=== PATIENT | female | born 1995 | race Caucasian/White ===

== ENCOUNTER 2019-06-25 07:35 | Inpatient (IN) ==
[2019-06-25 08:25] LABS: Hematocrit (blood only) 29.1 % (37-47); Hemoglobin 9.7 g/dL (12.0-16.0); Mean Corpuscular Volume 82.9 fL (80-100); Platelet Count 251 K/uL (130-400); RDW Coefficient of Variation 13.7 % (11.5-14.5); RDW Standard Deviation 41.5 fL (36.4-46.3); Red Blood Count 3.51 M/uL (4.2-5.4); White Blood Count 7.72 K/uL (4.8-10.8)
[2019-06-25 08:35] LABS: Mean Corpuscular Hgb Conc 33.3 g/dL (32-36)
[2019-06-25] MEDS: LACTATED RINGER'S 1,000 ML IV PRN ×3 (09:05→18:50)
[2019-06-25] MEDS ORDERED: OXYTOCIN 30 UNITS/500 ML BAG IV PRN ×2 (09:06→20:09)
[2019-06-25] MEDS ORDERED: ONDANSETRON INJ 2 MG/ML 2 ML VIAL IV PRN (16:03)
[2019-06-25] MEDS ORDERED: ePHEDrine sulfate 50 MG/ML AMP IV PRN (16:03)
[2019-06-25] MEDS ORDERED: fentaNYL 2MCG/ML ROPIV 1.25MG/ML 100 ML BAG EPI PRN (16:03)
[2019-06-25] MEDS ORDERED: NALOXONE HCL 0.4 MG/1 ML VIAL/CARP IV PRN (16:03)
[2019-06-25] MEDS ORDERED: NALOXONE HCL 1 MG in SODIUM CHLORIDE 0.9% 1000ML 1,000 ML IV PRN (16:03)
--- NOTE | 2019-06-25 16:11 | Anesthesiology Consultation ---
Date of Service June 25, 2019 Assessment & Plan (1) Encounter for pre-operative examination: Chart Review Chart Review: Patient NOT seen in Pre Admission Testing and Acceptable Risk for Labor Epidural Consults Requested none History Height/Weight Height: 5 ft 4.5 in Weight: 71.668 kg Allergies Allergy/AdvReac Type Severity Reaction Status Date / Time morphine Allergy Severe Anaphylaxis Verified 06/25/19 10:18 diphenhydramine AdvReac Severe Anaphylaxis Verified 06/25/19 10:18 [From Benadryl] Medications Home Medications Medication Instructions Recorded Confirmed Last Taken vit no.842-pden-lqzko 1 tab PO DAILY 06/25/19 06/25/19 Unknown [ Vitamin] Active Medications Generic Name Dose Route Start Last Admin Trade Name Freq PRN Reason Stop Dose Admin Lactated Ringer's 1,000 mls @ 125 mls/hr 06/25/19 07:54 06/25/19 15:58 Lr IV 06/27/19 07:53 999 mls/hr .Q8H PRN Administration L&D Protocol Protocol Oxytocin 30 units in 500 mls @ 12 mls/hr 06/25/19 09:06 06/25/19 15:14 Pitocin IV 06/27/19 09:05 0.72 units/hr .Q24H PRN 12 mls/hr Labor Induction/Augmentation Titration Protocol 0.72 UNITS/HR Past Medical History Medical History POTS (postural orthostatic tachycardia syndrome) Alf-Danlos syndrome First trimester Spontaneous loss 2014 18 week gestation, spontaneous IUFD, unknown cause, induced [place] teeth removed non cascular type alf danlos. pt has had two successful epidurals before Exercise / Class Metabolic Activity II 4-5 Yardwork/Stairs/Walk up hill Past Family History Family History Other No pertinent family history in first degree relatives Past Surgical History Surgical History H/O dilation and curettage 2012 Past Anesthesia History No Hx of Anesthesia Complications and No Family Hx of Anesthesia Complications History of PONV No Hx of PONV and No Hx of Motion Sickness Social History Smoking Status: Never smoker Do You Dip or Chew Tobacco: No Hx Alcohol Use: No Hx Substance Use: No Physical Exam Vital Signs Last Vital Signs Temp 36.8 C 06/25/19 15:15 Pulse 93 H 06/25/19 16:29 Resp 18 06/25/19 15:15 BP 100/59 L 06/25/19 16:29 Pulse Ox 100 06/25/19 16:27 Testing Laboratory Results 06/25/19 08:12
[2019-06-25] MEDS ORDERED: BUPIVACAINE 0.25% 30 ML VIAL ONE (17:24)
[2019-06-25] MEDS ORDERED: fentaNYL citrate 100 MCG/2 ML VIAL ONE (17:25)
[2019-06-25] MEDS: OXYTOCIN 30 UNITS/500 ML BAG IV PRN ×2 (19:59→21:17)
[2019-06-25] MEDS ORDERED: HYDROCORTISONE ACETATE 25 MG SUPP PR PRN (20:09)
[2019-06-25] MEDS ORDERED: SUPERCREAM 0.870% 15 GM JAR EXT PRN (20:09)
[2019-06-25] MEDS ORDERED: ACETAMINOPHEN W/CODEINE #3 1 TAB PO PRN (20:09)
[2019-06-25] MEDS ORDERED: BENZOCAINE 20% AER SPR 82.5 GM CAN EXT PRN (20:09)
[2019-06-25] MEDS ORDERED: OXYCODONE/ACETAMINOPHEN 5mg/325mg TAB PO PRN (20:09)
[2019-06-25] MEDS ORDERED: DIPHTHERIA/TETANUS/PERTUSSIS 0.5 ML SYR/VIAL IM ONE (20:09)
[2019-06-25] MEDS ORDERED: ACETAMINOPHEN 325 MG TAB PO PRN (20:09)
[2019-06-25] MEDS ORDERED: BISACODYL 10 MG SUPP PR PRN (20:09)
--- NOTE | 2019-06-25 21:29 | Anesthesia Procedure Note ---
Date of Service June 25, 2019 Anesthesia Post Epidural Note Vital Signs Vital Signs: Temp Pulse Resp BP Pulse Ox 37.0 C 81 18 110/58 L 98 06/25/19 19:14 06/25/19 21:27 06/25/19 21:08 06/25/19 21:23 06/25/19 21:27 Pain Intensity Abdomen: Pain Intensity: 0 Notes Mental Status: alert / awake / arousable and participated in evaluation Patient Amnestic to Procedure: No Nausea / Vomiting: adequately controlled Pain: adequately controlled Airway Patency, RR, SpO2: stable & adequate BP & HR: stable & adequate Hydration State: stable & adequate Neuraxial Anesthesia: was administered and sensory block is resolving Anesthetic Complications: no major complications apparent and Pt Satisfied with anesthetic care Epidural: Removed without complications and With tip intact
[2019-06-25] MEDS: IBUPROFEN 600 MG TAB PO PRN (22:44)
[2019-06-25] MEDS: DOCUSATE SODIUM 100 MG CAP PO SCH (23:29)
--- NOTE | 2019-06-26 02:10 | Delivery Summary ---
Mrs. Harris is a 3, para 3. General health is good. Blood type is O positive, strep negative, rubella immune well dated with an early ultrasound, due date is 07/02/2019. She had a history of having a macrosomic infant. Her last delivery in 2013, she had an 8-pound 5-ounce male at 38 weeks. She requested induction at 39 weeks, was brought in. Head was low. Cervix was about a centimeter. She was started directly on IV Pitocin. She obtained a good regular labor pattern. Eventually, the cervix started to open, at about 4-5 cm, she requested and received epidural anesthesia for pain control. She then ruptured her membranes spontaneously, went to full dilatation, delivered a live female via direct occiput anterior position over an intact perineum. There was a tight nuchal cord that could not be slipped over the head, it was clamped in 2 places and cut. The body was then delivered without difficulty. Cord blood was taken, with IV Pitocin running, the placenta was removed intact. Inspection of the perineum revealed a very superficial laceration at 6 o'clock. It was bleeding on the edges, so was sutured with a running 3-0 chromic. Following this, vaginal examination revealed no hematoma formation, sponges in the vagina. Estimated blood loss was 100 mL. The patient tolerated the procedure well.
[2019-06-26] MEDS: IBUPROFEN 600 MG TAB PO PRN ×5 (02:48→19:30)
[2019-06-26 07:15] LABS: Hematocrit (blood only) 28.4 % (37-47); Hemoglobin 9.1 g/dL (12.0-16.0); Mean Corpuscular Volume 85.5 fL (80-100); Mean Platelet Volume 10.1 fL (7.4-10.4); Platelet Count 220 K/uL (130-400); RDW Coefficient of Variation 13.8 % (11.5-14.5); RDW Standard Deviation 43.1 fL (36.4-46.3); Red Blood Count 3.32 M/uL (4.2-5.4); White Blood Count 11.16 K/uL (4.8-10.8)
[2019-06-26] MEDS ORDERED: PRENATAL VITAMIN 1 TAB PO SCH (08:00)
[2019-06-26] MEDS ORDERED: FERROUS SULFATE 325 MG TAB PO SCH (08:00)
[2019-06-26] MEDS: DOCUSATE SODIUM 100 MG CAP PO SCH (08:32)
--- NOTE | 2019-06-26 09:09 | Obstetrical Progress Note ---
Date of Service June 26, 2019 Physical Exam Physical Exam: abdomen soft and non tender vaginal bleeding scant to moderate hgb 9.1 no calf tenderness ambulating well patient requests discharge Results & Data Vital Signs (Past 12 Hours) Vital Signs Temp Pulse Pulse Resp BP BP Pulse Ox 06/26/19 07:54 36.7 C 72 18 102/68 97 06/26/19 03:00 36.6 C 66 18 103/67 06/25/19 22:55 37.0 C 88 18 108/69 06/25/19 22:17 98 H 98 06/25/19 22:12 87 97 06/25/19 22:08 98 H 18 104/58 L 06/25/19 22:07 94 H 97 06/25/19 22:02 87 97 06/25/19 21:57 88 97 06/25/19 21:53 81 103/56 L 06/25/19 21:52 88 97 06/25/19 21:47 83 98 06/25/19 21:42 84 98 06/25/19 21:38 76 18 109/59 L 98 06/25/19 21:37 88 97 06/25/19 21:32 84 97 06/25/19 21:27 81 98 06/25/19 21:23 83 110/58 L 06/25/19 21:22 88 98 06/25/19 21:17 81 98 06/25/19 21:12 92 H 98 06/25/19 21:08 83 18 109/60
[2019-06-26] MEDS ORDERED: BISACODYL 5 MG TABEC PO SCH (20:00)
== END 2019-06-26 21:20 | disposition home or self-care (01) | DRG 807 ==
LOC: 4S1 07:35 → 4S2 22:50
DX: O69.1XX0 Labor and delivery complicated by cord around neck, with compression, not applicable or unspecified; Z37.0 Single live birth; O70.0 First degree perineal laceration during delivery; Z3A.39 39 weeks gestation of pregnancy

== ENCOUNTER 2021-07-04 18:22 | Observation (INO) ==
[2021-07-04] MEDS: D5W AND LACTATED RINGERS 1,000 ML IV SCH (20:39)
[2021-07-04] MEDS: ONDANSETRON INJ 2 MG/ML 2 ML VIAL IV PRN (20:39)
[2021-07-04] MEDS ORDERED: ACETAMINOPHEN 325 MG TAB PO PRN (20:55)
[2021-07-04] MEDS: DICLEGIS SCH (21:27)
[2021-07-04] MEDS ORDERED: Nursing to Pharmacy Communication SCH (23:30)
[2021-07-05] MEDS ORDERED: PYRIDOXINE HCL IV ONE (01:30)
[2021-07-05] MEDS ORDERED: D5W AND LACTATED RINGERS IV ONE ×2 (01:30→06:30)
[2021-07-05] MEDS: ONDANSETRON INJ 2 MG/ML 2 ML VIAL IV PRN (01:50)
[2021-07-05] MEDS: D5W AND LACTATED RINGERS 1,000 ML IV SCH (01:58)
--- NOTE | 2021-07-05 04:17 | Hospitalist Consultation ---
Date of Consultation July 05, 2021 Assessment & Plan (1) Lab test positive for detection of COVID-19 virus: 25 yo F @ 10 wks w/ pMHx. of Alf-Danlos and POTS here for hyperemesis gravidarum and found to have + COVID-19 test potentially from prior resolved infection, currently asymptomatic - continue isolation - no indications for treatment at this time - care of hyperemesis per primary team Code: full Diet: low fat, IVF DVT: ambulation (2) Hyperemesis gravidarum: (3) POTS (postural orthostatic tachycardia syndrome): (4) Alf-Danlos syndrome: (5) First trimester : Supervising Physician Co-Signing Physician Notes Attending addendum: I have supervised the medical residents activities, and agree with the H&P unless as otherwise noted. Assessment and Plan: Hypermesis- Admitted and treatment per Dr. Jimenez COVID-19 infection- Patient is being transferred from room 479-301 for respiratory isolation in negative pressure room No symptoms at this time, therefore no active treatment. will need to be followed closely and begin treatment if becomes symptomatic We will follow along during hospital stay History of Present Illness Reason for Consultation: COVID-19 + Requesting Physician: Dr. Jimenez Attending Physician: Rickey Jimenez MD History of Present Illness Marilu aHrris is a 25-year-old female who has a history of Alf-Danlos and POTS who is presenting to the hospital with hyperemesis gravidarum at 10 weeks . She has had prior episodes of this with prior children. Her children and herself were sick 3 weeks ago with cold like symptoms that resolved completely. Her children tested negative for COVID at that time. She was tested while here in the hospital and was found to be postive for COVID-19. She denies cough, fevers, diarrhea, sore throat, loss of taste or smell. She was not vaccinated against COVID-19. Allergies Allergy/AdvReac Type Severity Reaction Status Date / Time morphine Allergy Severe Anaphylaxis Verified 07/04/21 11:25 diphenhydramine AdvReac Severe Anaphylaxis Verified 07/04/21 11:25 [From Benadryl] Home Medications Medication Instructions Recorded Confirmed Type vits no.124-ferrous fum 1 tab PO PM 06/25/19 07/04/21 History 27 mg iron-folic acid 800 mcg tablet ( Vitamin) doxylamine 10 mg-pyridoxine (vit 1 - 2 tab PO TID 07/03/21 07/04/21 History B6) 10 mg tablet,delayed release (Diclegis) metoclopramide HCl 10 mg tablet 10 mg PO Q6H PRN 07/03/21 07/04/21 History ondansetron HCl 8 mg tablet 8 mg PO TID PRN 07/03/21 07/04/21 History Patient History Medical History (Updated 07/05/21 @ 06:06 by Quincy Marcus MD) Alf-Danlos syndrome First trimester POTS (postural orthostatic tachycardia syndrome) Spontaneous loss 2014 18 week gestation, spontaneous IUFD, unknown cause, induced Surgical History (System 07/04/21 @ 11:25 by Estefania Glasgow) H/O dilation and curettage 2013 [place] teeth removed Family History Other No pertinent family history in first degree relatives Social History Smoking Status: Never smoker Second Hand Exposure: No; Do You Dip or Chew Tobacco: No; Tobacco Cessation Education Requested by Patient: No Hx Substance Use: No Preferred Language: [place] Communication Ability: Effective [employer] Required: No Beliefs That Will Affect Care: None marital status: Current Living Situation: Spouse and Family Current Living Situation Comment: just moved into a new home, [facility] and sons Other Information That Helps Us Care for You: No Feels Safe at Home: Yes Safety Concerns: Feels Safe At This Time Assistive Devices: None Review of Systems Review of Systems: All systems reviewed & are unremarkable except as noted in HPI & below Physical Exam Constitutional: well developed and well nourished Eyes: PERRL, conjunctivae normal, anicteric sclerae ENMT: external ear and nose normal, oropharynx normal Neck: normal visual inspection Respiratory: normal respiratory effort, lungs clear to auscultation Cardiovascular: RRR, no murmur, no edema Gastrointestinal (Abdomen): normal bowel sounds, soft, nontender, no hepatosplenomegaly Skin: no rashes, warm and dry Neurologic: no focal motor deficits Psychiatric: Orientation: alert and oriented x 3 Results & Data Results & Data ([facility]) Vital Signs (Past 12 Hours) Vital Signs Temp Pulse Resp BP Pulse Ox 07/05/21 01:41 37.2 C 87 18 108/68 97 07/04/21 22:35 36.9 C 89 18 110/70 99 07/04/21 19:00 37.0 C 96 H 18 101/62 97 CBC Results Results Complete Blood Count Results: RBC 4.17 M/uL (4.2-5.4) L 07/03/21 WBC 3.67 K/uL (4.8-10.8) L 07/03/21 Hgb 12.6 g/dL (12.0-16.0) 07/03/21 Hct 37.0 % (37-47) 07/03/21 Plt Count 151 K/uL (130-400) 07/03/21 Chemistry (BMP) Results BMP Results: Sodium 136 mmol/L (136-145) 07/04/21 Potassium 3.5 mmol/L (3.5-5.1) 07/04/21 Chloride 107 mmol/L (98-107) 07/04/21 BUN 6 mg/dl (7-18) L 07/03/21 Creatinine 0.53 mg/dl (0.6-1.2) L 07/03/21 Glucose 77 mg/dl (70-99) 07/03/21 Resident Activity Tracking Resident Involvement: Resident Care Provided Care Provided: Adult [facility]
[2021-07-05] MEDS ORDERED: MULTI VITAMIN INFUSION IV ONE (06:30)
[2021-07-05] MEDS: DICLEGIS SCH (08:50)
--- NOTE | 2021-07-05 08:56 | Obstetrical Progress Note ---
Date of Service July 05, 2021 Assessment & Plan Admission and Anticipated Discharge Date Admission Date: July 04, 2021 Subjective nausea is slightly decreased patient is covid positive payient is receiving iv fluids with vitamins Results & Data ([facility]) Vital Signs (Past 12 Hours) Vital Signs Temp Pulse Resp BP Pulse Ox 07/05/21 06:59 37.0 C 71 16 92/58 L 97 07/05/21 01:41 37.2 C 87 18 108/68 97 07/04/21 22:35 36.9 C 89 18 110/70 99
--- NOTE | 2021-07-05 11:25 | Hospitalist Progress Note ---
Date of Service July 05, 2021 Assessment & Plan (1) Lab test positive for detection of COVID-19 virus: Plan: * Patient currently completely asymptomatic. Oxygen level 97 to 100% on room air. Vital signs stable (BP 92/58; however, she is not dizzy or lightheaded and this is likely normal for her given her young age). * With her having Covid and being , she is at a slightly increased risk of DVT/PE; however, I would not advise Lovenox for prophylaxis. She does not have a personal and/or family history of DVT/PE/blood dyscrasia. She does not smoke. No history of active malignancy. She is very active as she has 3 young children. Lengthy discussion with her regarding signs and symptoms of DVT/PE. She should not ignore any of these and should seek medical attention immediately. * No added recommendations. She does have hyperemesis gravidarum. Uncertain if her Covid was adding to her nausea and vomiting. The symptoms seem to be relatively well controlled at present time. She is tolerating oral intake. * Lengthy discussion with patient regarding [facility] recommendations for quarantine. Since patient asymptomatic, would be 10 days from Covid test. Patient voices understanding. (2) Hyperemesis gravidarum: Plan: * Symptoms seem to be relatively well controlled. Treatment at discretion of primary team. (3) POTS (postural orthostatic tachycardia syndrome): Plan: * May be exacerbated with current , hyperemesis gravidarum, Covid, and any dehydration from nausea and vomiting. Heart rate currently controlled at present time. Patient should avoid caffeine (4) Alf-Danlos syndrome: Plan: * At this point time, patient tested positive for COVID-19; however, seems relatively asymptomatic. She does have nausea and vomiting but this is in the setting of hyperemesis gravidarum. Cannot say for sure that her Covid diagnosis is not contributing to her hyperemesis gravidarum/nausea and vomiting. At any rate, she has 0 respiratory symptoms. She is hemodynamically stable and she is not requiring any supplemental oxygen. No a dded recommendations at this time. * Would feel comfortable discharging patient to home when deemed appropriate by primary team * Will sign off on this patient from a medical standpoint but do not hesitate to reconsult should a problem arise. Thank you for allowing us to participate in the care of this patient Admission and Anticipated Discharge Date Admission Date: July 04, 2021 Subjective Patient seen on daily rounds today. She is a 25 y/o WF who is ~10weeks . she had Alf-Danlos syndrome and POTS but is otherwise relatively healthy. Has been struggling with hyperemesis gravidarum (which she has had with all previous pregnancies). Taking Zofran, Reglan, and Diclegis. In addition, was receiving OP IVF but despite all of this, was unable to tolerate oral intake and had continued intractable N/V. Was admitted for this reason and ended up having a po sitive covid test. She reports cold symptoms ~3 weeks ago. States that her 3 children and herself had "head colds" consisting of subjective fevers, rhinorrhea, and dry cough. Her children were test and negative for covid at that time. All symptoms resolved. She otherwise feesl well other than intractable N/V. She denies F/C, GOMEZ, nasal congestion, sore throat, cough, loss of taste/smell, CP, palpitations, SOB, CARO, pleurisy, abd pain or diarrhea. Denies leg/calf pain or swelling. currently, she reports that her vomiting has resolved. She is tolerating oral intake and although her nausea remains, it is better than is has been and is tolerable. Patient's lab data reviewed. CBC is unremarkable. Metabolic panel is unremarkable. Electrolytes all within normal limits. Renal function normal. Review of Systems Review of Systems: All systems reviewed and are unremarkable except as noted in HPI and below Denies fevers, chills, headache, nasal congestion, loss of taste/smell, sore throat, cough, chest pain, shortness of breath, pleurisy, abdominal pain, dysuria, hematuria, frequency, leg pain/swelling, skin lesions or rashes. Physical Exam Physical Exam: General: Resting comfortably in her hospital bed. Does not appear ill or toxic. NAD. Neck: No JVD. Negative hepatojugular reflex Cardiac: RRR with a current rate of 81 bpm with 1/6 to 2/6 EDUARDO Lungs: CTA without W/R/R Abdomen: Normoactive X4. Soft and nontender in all quadrants. Extremities: No peripheral clubbing, cyanosis, edema. No calf pain or tenderness. Negative Homans' sign bilaterally. Neuro: A&O X4 cranial nerves II through XII are grossly intact no focal neuro deficits Skin: No obvious skin lesions or rashes Results & Data Results & Data ([facility]) Vital Signs (Past 12 Hours) Vital Signs Temp Pulse Resp BP Pulse Ox 07/05/21 06:59 37.0 C 71 16 92/58 L 97 07/05/21 01:41 37.2 C 87 18 108/68 97 Laboratory Results Reviewed. See above PG Care Time/CCT Total # of Minutes Spent Total Time Spent with Patient: Total time spent is greater than 50% in coordination of care (as documented) at patient's floor/unit and/or counseling patient: [place] [address] Inpt Consult Level 4 Patient Type Established History Expanded Problem Focused Exam Expanded Problem Focused Medical Decision Making Moderate Complexity Diagnoses Lab test positive for detection of COVID-19 virus U07.1 Hyperemesis gravidarum O21.0 POTS (postural orthostatic tachycardia syndrome) R00.0; I95.1 Alf-Danlos syndrome Q79.6
--- NOTE | 2021-07-06 03:59 | Discharge Summary (DS) ---
HOSPITAL COURSE: The patient had been admitted first through the Emergency Room with hyperemesis. S he was given about a liter and a half of fluid, came in to my office the very next day, still vomitin g, still symptomatic. She was taken to the outpatient surgery center where she then received 2 liter s of Ringer's lactate with 5% glucose along with 100 mg of IV pyridoxine and an amp of IV multiple vi tamins along with IV Zofran. She went home, was at home for about an hour or two and could not stop vomiting. So she was hospitalized and admitted. She was started again on Ringer's lactate with 5% g lucose, same regime of 100 mg of vitamin B6 in one bag and an amp of multivitamins in the other. Also she was given Tylenol for discomfort and IV Zofran. On admission, her COVID test was positive. I t herefore think that some of her illness was compounded with the COVID virus. After about 24 hours of IV fluid therapy, she felt she was ready to go home. She was able to tolerate some food. She had n ot vomited in a while. MEDICATIONS AT HOME: Zofran, Reglan, and Diclegis. She was told to call if she had any symptoms, june rtness of breath. Otherwise, just continue on her antinausea medication and keep her regular office visits. Job ID: [id number]
--- NOTE | 2021-07-06 05:58 | Billing Data ---
Date of Service July 06, 2021 Coding Level of Care Code 81656 Inpt Consult Level 3
== END 2021-07-05 15:44 | disposition home or self-care (01) ==
LOC: OPB 18:22 → 4N 18:24 → INTOOBSV 19:57 → 3E 07-05 01:47

== ENCOUNTER 2022-01-26 17:29 | Inpatient (IN) ==
[2022-01-26] MEDS ORDERED: LACTATED RINGER'S 1,000 ML IV PRN (20:47)
[2022-01-26] MEDS ORDERED: OXYTOCIN 30 UNITS/500 ML BAG IV PRN ×2 (20:47→23:19)
[2022-01-26 21:10] LABS: Hematocrit (blood only) 30.2 % (37-47); Hemoglobin 10.3 g/dL (12.0-16.0); Mean Corpuscular Hemoglobin 28.9 pg (25-34); Mean Corpuscular Hgb Conc 34.1 g/dL (32-36); Mean Corpuscular Volume 84.6 fL (80-100); Mean Platelet Volume 9.5 fL (7.4-10.4); Platelet Count 323 K/uL (130-400); RDW Coefficient of Variation 13.6 % (11.5-14.5); RDW Standard Deviation 41.7 fL (36.4-46.3); Red Blood Count 3.57 M/uL (4.2-5.4)
[2022-01-26] MEDS ORDERED: BUPIVACAINE 0.25% 30 ML VIAL ONE ×2 (22:10→23:32)
[2022-01-26] MEDS ORDERED: SODIUM CHLORIDE 0.9% INJ 10 ML VIAL ONE (22:10)
[2022-01-26] MEDS ORDERED: fentaNYL citrate 100 MCG/2 ML VIAL ONE (22:10)
[2022-01-26] MEDS ORDERED: ePHEDrine sulfate 50 MG/ML AMP ONE (22:10)
[2022-01-26] MEDS ORDERED: fentaNYL 2MCG/ML ROPIVACAINE 1.25MG/ML 100 ML BAG EPI ONE (22:11)
[2022-01-26] MEDS ORDERED: ePHEDrine sulfate 50 MG/ML AMP IV PRN (22:36)
[2022-01-26] MEDS ORDERED: NALOXONE HCL 1 MG in SODIUM CHLORIDE 0.9% 1000ML 1,000 ML IV PRN (22:36)
[2022-01-26] MEDS ORDERED: fentaNYL 2MCG/ML ROPIVACAINE 1.25MG/ML 100 ML BAG EPI PRN (22:36)
[2022-01-26] MEDS ORDERED: NALOXONE HCL 0.4 MG/1 ML VIAL/CARP IV PRN (22:36)
[2022-01-26] MEDS ORDERED: ONDANSETRON INJ 2 MG/ML 2 ML VIAL IV PRN (22:36)
--- NOTE | 2022-01-26 22:38 | Anesthesiology Consultation ---
Date of Service January 26, 2022 Assessment & Plan (1) Encounter for pre-operative examination: Chart Review Chart Review: Patient NOT seen in Pre Admission Testing and Acceptable Risk for Labor Epidural Consults Requested none History Height/Weight Height: 5 ft 6 in Weight: 74.843 kg Allergies Allergy/AdvReac Type Severity Reaction Status Date / Time morphine Allergy Severe Anaphylaxis Verified 11/18/21 21:59 diphenhydramine AdvReac Severe Anaphylaxis Verified 11/18/21 21:59 [From Benadryl] Medications Home Medications Medication Instructions Recorded Confirmed Last Taken vits no.124-ferrous fum 1 tab PO PM 06/25/19 01/26/22 1 Day Ago 27 mg iron-folic acid 800 mcg ~01/25/22 tablet ( Vitamin) Active Medications Generic Name Dose Route Start Last Admin Trade Name Freq PRN Reason Stop Dose Admin Lactated Ringer's 1,000 mls @ 125 mls/hr 01/26/22 20:47 01/26/22 22:13 Lr IV 01/28/22 20:46 125 mls/hr .Q8H PRN Administration L&D Protocol Protocol Past Medical History Medical History (Updated 01/26/22 @ 22:38 by Yonas Brizuela MD) Alf-Danlos syndrome First trimester POTS (postural orthostatic tachycardia syndrome) Spontaneous loss 2014 18 week gestation, spontaneous IUFD, unknown cause, induced Exercise / Class Metabolic Activity II 4-5 Yardwork/Stairs/Walk up hill Past Family History Family History Other No pertinent family history in first degree relatives Past Surgical History Surgical History H/O dilation and curettage 2013 [place] teeth removed Past Anesthesia History No Hx of Anesthesia Complications and No Family Hx of Anesthesia Complications History of PONV No Hx of PONV and No Hx of Motion Sickness Social History Smoking Status: Never smoker Do You Dip or Chew Tobacco: No Hx Alcohol Use: No Hx Substance Use: No substance use type: does not use Physical Exam Vital Signs Last Vital Signs Temp 36.7 C 01/26/22 17:57 Pulse 91 H 01/26/22 22:34 Resp 18 01/26/22 17:57 BP 103/56 L 04/08/22 19:35 Pulse Ox 99 01/26/22 22:34 Testing Laboratory Results 01/26/22 20:54
[2022-01-27] MEDS ORDERED: bisacodyL 10 MG SUPP PR PRN (00:54)
[2022-01-27] MEDS ORDERED: OXYTOCIN 30 UNITS/500 ML BAG IV PRN (00:54)
[2022-01-27] MEDS ORDERED: ACETAMINOPHEN 325 MG TAB PO PRN (00:54)
[2022-01-27] MEDS ORDERED: HYDROCORTISONE ACETATE 25 MG SUPP PR PRN (00:54)
[2022-01-27] MEDS ORDERED: ACETAMINOPHEN W/CODEINE #3 1 TAB PO PRN (00:54)
[2022-01-27] MEDS ORDERED: DIPHTHERIA/TETANUS/PERTUSSIS 0.5 ML SYR/VIAL IM ONE (00:54)
[2022-01-27] MEDS ORDERED: BENZOCAINE 20% AER SPR 82.5 GM CAN EXT PRN (00:54)
--- NOTE | 2022-01-27 02:34 | Anesthesia Procedure Note ---
Date of Service January 27, 2022 Anesthesia Post Epidural Note Vital Signs Vital Signs: Temp Pulse Resp BP Pulse Ox 36.7 C 78 22 102/56 L 100 01/26/22 17:57 01/27/22 02:20 01/26/22 23:35 01/27/22 02:20 01/27/22 00:49 Notes Mental Status: alert / awake / arousable and participated in evaluation Patient Amnestic to Procedure: No Nausea / Vomiting: adequately controlled Pain: adequately controlled Airway Patency, RR, SpO2: stable & adequate BP & HR: stable & adequate Hydration State: stable & adequate Neuraxial Anesthesia: was administered and sensory block is resolving Anesthetic Complications: no major complications apparent and Pt Satisfied with anesthetic care Epidural: Removed without complications and With tip intact
--- NOTE | 2022-01-27 03:43 | Delivery Summary ---
DELIVERY NOTE: She is a 5, para 3, blood type is O positive, group B strep negative. Followe d in our office for care and delivery. We set up for induction at 39 weeks, came in active labor. When I first checked her, she was 6 cm with bulging membranes. We waited for her to show up. We are getting an epidural. Rupture of membranes. Fluid was clear and then within about a n hour, she pushed out a live male infant via direct occiput anterior position over an intact perineu m. Infant was suctioned thoroughly through the mouth and the nose. Shoulders were delivered without difficulty. Cord was allowed to pulse for one full minute, then clamped, cut by the father. Cord b lood was taken. With IV Pitocin running, the placenta was removed intact. Uterus contracted nicely. Perineum revealed no lacerations. Estimated blood loss was 100 mL. Job ID: [id number]
[2022-01-27] MEDS: IBUPROFEN 600 MG TAB PO PRN ×3 (07:35→17:30)
[2022-01-27] MEDS: PRENATAL VITAMIN 1 TAB PO SCH (07:35)
[2022-01-27] MEDS: DOCUSATE SODIUM 100 MG CAP PO SCH ×2 (07:35→20:11)
[2022-01-28] MEDS: IBUPROFEN 600 MG TAB PO PRN ×2 (00:09→07:33)
[2022-01-28 07:06] LABS: Hematocrit (blood only) 29.2 % (37-47); Hemoglobin 9.7 g/dL (12.0-16.0); Mean Corpuscular Hemoglobin 28.5 pg (25-34); Mean Corpuscular Hgb Conc 33.2 g/dL (32-36); Mean Corpuscular Volume 85.9 fL (80-100); Mean Platelet Volume 9.5 fL (7.4-10.4); Platelet Count 314 K/uL (130-400); RDW Coefficient of Variation 13.9 % (11.5-14.5); RDW Standard Deviation 43.7 fL (36.4-46.3); White Blood Count 10.13 K/uL (4.8-10.8)
[2022-01-28] MEDS: PRENATAL VITAMIN 1 TAB PO SCH (07:33)
[2022-01-28] MEDS: DOCUSATE SODIUM 100 MG CAP PO SCH (07:33)
--- NOTE | 2022-01-28 09:21 | Obstetrical Progress Note ---
Date of Service January 28, 2022 Assessment & Plan Admission and Anticipated Discharge Date Admission Date: January 26, 2022 Subjective abdomen soft and non tender no calf tenderness ambulating well vaginal bleeding scant hgb 9.7 Results & Data ([facility]) Vital Signs (Past 12 Hours) Vital Signs Temp Pulse Resp BP 01/27/22 23:41 36.4 C L 68 20 91/52 L
[2022-01-28] MEDS ORDERED: bisacodyL 5 MG TABEC PO SCH (20:00)
== END 2022-01-28 13:40 | disposition home or self-care (01) | DRG 807 ==
LOC: OPB 17:29 → 4S1 17:31 → 4E2 01-27 06:42

== ENCOUNTER 2023-03-31 16:44 | Inpatient (IN) ==
[2023-03-31] MEDS ORDERED: ONDANSETRON INJ 2 MG/ML 2 ML VIAL IV STA (17:21)
[2023-03-31] MEDS ORDERED: KETOROLAC TROMETHAMINE 15 MG/ML VIAL IV STA (17:21)
[2023-03-31] MEDS ORDERED: SODIUM CHLORIDE 0.9% 1000ML 1,000 ML IV STA (17:21)
--- NOTE | 2023-03-31 17:36 | Emergency Department Note ---
History of Present Illness General Chief complaint: Abdominal Pain Stated complaint: ABDOMINAL/BACK PAIN, NAUSEA, VOMITING Time Seen by Provider: 03/31/23 17:00 History of Present Illness Maximum Pain Intensity: 8 27-year-old female with past medical history significant for POTS and Alf- Danlos syndrome who presents to the emergency department for evaluation of fevers/chills and left flank pain. Patient states yesterday afternoon she started with body chills and took her temperature and noted to be max 102. She took some Tylenol which did help but fever returned after a few hours. She reports left low back pain starting yesterday that radiates into her abdomen. She describes it as a stabbing pain. There are no exacerbating or alleviating factors. She reports history of frequent UTIs, no history of kidney stones. She denies dysuria or hematuria but notes decreased urination over the last day despite adequate hydration. She reports associated nausea/vomiting x 1 episode. She denies chest pain, SOB, overt abdominal pain, diarrhea/constipation, recent cold like symptoms, cough. She also reports a migraine headache which she has history of. No visual changes, light/sound sensitivity, or neck stiffness. She currently is on amoxicillin for presumed dental infection from her PCP which she started []. She has taken 3 doses. She states her dental pain has since subsided with abx. Currently on her menstrual cycle, no chance of . She has tried tylenol and ibuprofen for her symptoms. Home Medications Medication Instructions Recorded Confirmed Type vits no.[id number]-ferrous fum 1 tab PO PM 06/25/19 03/31/23 History 27 mg iron-folic acid 800 mcg tablet ( Vitamin) acetaminophen 325 mg tablet 650 mg PO QID PRN Pain 03/31/23 03/31/23 History (Tylenol) amoxicillin 500 mg tablet 500 mg PO BID 03/31/23 03/31/23 History bupropion HCl 150 mg 24 hr tablet, 150 mg PO QAM 03/31/23 03/31/23 History extended release Allergies Allergy/AdvReac Type Severity Reaction Status Date / Time morphine Allergy Severe Anaphylaxis Verified 11/18/21 21:59 diphenhydramine AdvReac Severe Anaphylaxis Verified 11/18/21 21:59 [From Benadryl] Past Med/Surg History Medical History (Updated 03/31/23 @ 20:24 by Saira Jasmine PA-C) Alf-Danlos syndrome First trimester POTS (postural orthostatic tachycardia syndrome) Spontaneous loss 2014 18 week gestation, spontaneous IUFD, unknown cause, induced Surgical History H/O dilation and curettage 2012 [place] teeth removed Family History Other No pertinent family history in first degree relatives Social History Smoking Status: Never smoker Second Hand Exposure: No; Do You Dip or Chew Tobacco: No; Hx Alcohol Use: No Hx Substance Use: No Preferred Language: Telugu Communication Ability: Effective Set [employer] Required: No Beliefs That Will Affect Care: None marital status: Current Living Situation: Family Current Living Situation Comment: Lives with and sons Feels Safe at Home: Yes Diet: regular Assistive Devices: None Physical Exam Vital Signs Vital Signs - 24 hr 03/31/23 16:50 03/31/23 17:48 03/31/23 19:35 Temperature 39.0 C H Temperature Source Oral Pulse Rate 120 H 98 H Pulse Rate [Right Brachial] 95 H Pulse Rhythm Regular Pulse Rhythm [Right Brachial] Regular Pulse Strength [Right Brachial] Normal Respiratory Rate 20 18 19 Respiratory Effort / Characteristics Non-Labored Spontaneous Respiratory Depth Normal Respiratory Pattern Regular Blood Pressure 118/79 Blood Pressure [Right Arm] 109/66 Blood Pressure Mean 92 Blood Pressure Mean [Right Arm] 80 Blood Pressure Position [Right Arm] Lying Pulse Oximetry 98 99 96 Oxygen Delivery Method Room Air Room Air Room Air Sepsis Recent Fever Within 48 Hours Yes Sepsis New/Unexplained Change in Mental Status N/A Sepsis Action Taken by Nursing No Action Required Constitutional: alert and oriented x3. no acute distress. nontoxic appearing HEENT: normocephalic, atraumatic. normal conjunctiva.PERRLA. EOM's grossly i ntact. unable to visual TMs secondary to cerumen. Pharynx pink without exudate. Tonsils nonenlarged. Mucus membranes moist. Dentition in good condition. Left lower back molar with evidence of cavity. No dental abscess. Neck: neck is supple, nontender. no cervical lymphadenopathy. Neck nontender, ROM intact. No meningeal signs. Respiratory: lungs are clear to auscultation without wheezes, rhonchi, or rales bilaterally. equal chest rise. normal respiratory effort, no accessory muscle use. Cardiovascular: normal heart sounds without murmur. regular rate and rhythm. GI: abdomen is soft, nondistended. R and L upper quadrant tenderness. No palpable masses. No rebound tenderness or guarding. L CVA tenderness MSK: Moves all 4 extremities spontaneously Peripheral vascular: extremities warm and well perfused Psych:appropriate mood and affect. Course Administered Medications Discontinued Medications Sodium Chloride (Nss 1000ml) 1,000 mls @ 999 mls/hr IV .Q1H1M STA Stop: 03/31/23 18:21 Last Infusion: 03/31/23 19:06 Dose: 0 mls/hr Documented By: Admin: 03/31/23 17:43 Dose: 999 mls/hr Documented By: BELÉN Ceftriaxone Sodium (Rocephin) 2,000 mg in 70 mls @ 140 mls/hr IV NOW STA Stop: 03/31/23 19:43 Last Infusion: 03/31/23 20:14 Dose: 0 mls/hr Documented By: Admin: 03/31/23 19:32 Dose: 140 mls/hr Documented By: BELÉN Acetaminophen (Ofirmev) 1,000 mg in 100 mls @ 400 mls/hr IV NOW STA Stop: 03/31/23 19:54 Last Infusion: 03/31/23 20:14 Dose: 0 mls/hr Documented By: Admin: 03/31/23 19:58 Dose: 400 mls/hr Documented By: BELÉN Ioversol (Optiray 320 100ml) 90 ml IV ONCE ONE Stop: 03/31/23 18:53 Last Admin: 03/31/23 18:53 Dose: 90 ml Documented By: SPENSER Ketorolac Tromethamine (Ketorolac Tromethamine 15 Mg/Ml Vial) 15 mg IV NOW STA Stop: 03/31/23 17:22 Last Admin: 03/31/23 17:46 Dose: 15 mg Documented By: BELÉN Ondansetron HCl (Ondansetron Inj 2 Mg/Ml 2 Ml Vial) 4 mg IV NOW STA Stop: 03/31/23 17:22 Last Admin: 03/31/23 17:44 Dose: 4 mg Documented By: BELÉN Medical Decision Making Differential Diagnosis Viral URI, gastroenteritis, dental infection, dental abscess, appendicitis, ovarian cyst, ovarian torsion, UTI, nephrolithiasis, pyelonephritis, diverticulitis, pancreatitis, acute cholecystitis as well as other pathologies Laboratory Data Attestation: I reviewed the patient's lab results. 03/31/23 17:33 03/31/23 17:33 Lab Results 03/31/23 03/31/23 03/31/23 Range/Units 17:33 17:33 17:33 WBC 10.40 (4.8-10.8) K/ul RBC 3.97 L (4.20-5.40) M/uL Hgb 11.6 L (12.0-16.0) g/dl Hct 34.6 L (37.0-47.0) % MCV 87.2 (80.0-100.0) fL MCH 29.2 (25.0-34.0) pg MCHC 33.5 (32.0-36.0) g/dL RDW Std Deviation 40.3 (36.4-46.3) fL RDW Coeff of Mayo 12.7 (11.5-14.5) % Plt Count 196 (130-400) K/uL MPV 10.0 (9.4-12.4) fL Immature Gran % (Auto) 0.4 % Neut % (Auto) 82.6 % Lymph % (Auto) 6.9 % Lyon % (Auto) 9.4 % Eos % (Auto) 0.4 % Baso % (Auto) 0.3 % Neut # (Auto) 8.59 H (1.40-6.50) K/uL Lymph # (Auto) 0.72 L (1.2-3.4) K/uL Lyon # (Auto) 0.98 H (0.11-0.59) K/uL Eos # (Auto) 0.04 (0-0.50) K/uL Baso # (Auto) 0.03 (0-0.2) K/uL Immature Gran # (Auto) 0.04 (0.01-0.20) K/uL Sodium 139 (136-145) mmol/L Potassium 3.5 (3.5-5.1) mmol/L Chloride 104 (98-107) mmol/L Carbon Dioxide 26 (21-32) mmol/L Anion Gap 9 (3-11) BUN 13 (6-23) mg/dl Creatinine 0.59 L (0.6-1.2) mg/dl Est Cr Clr Drug Dosing 121.5 ml/min Est GFR ( Amer) 143.6 ml/min Est GFR (Non-Af Amer) 123.9 ml/min BUN/Creatinine Ratio 22.0 H (10-20) Glucose 101 H (70-99(Fasting)) mg/dl Lactate 1.5 (0.4-2.0) mmol/L Calcium 8.9 (8.6-10.3) mg/dl Total Bilirubin 0.5 (0.2-1.0) mg/dl AST 25 (13-39) U/L ALT 18 (7-52) U/L Alkaline Phosphatase 95 (34-104) U/L Total Protein 7.4 (6.0-8.3) gm/dl Albumin 4.4 (3.4-5.0) gm/dl Globulin 3.0 (2.5-4.0) gm/dl Albumin/Globulin Ratio 1.5 (0.9-2) Lipase 10 L (11-82) U/L Urine Color Urine Appearance (Clear) Urine pH (4.5-7.5) Ur Specific [place] (1.000-1.030) Urine Protein (Negative) Urine Glucose (UA) (Negative) Urine Ketones (Negative) Urine Blood (Negative) Urine Nitrite (Negative) Urine Bilirubin (Negative) Urine Urobilinogen (Negative) Ur Leukocyte Esterase (Negative) Urine WBC (Auto) (0-5) /hpf Urine RBC (Auto) (0-4) /hpf U Hyaline Cast (Auto) (0-5) /lpf U Epithel Cells (Auto) (0-5) /lpf Urine Bacteria (Auto) (Negative) Urine Yeast POC Ur Test (NEG) 03/31/23 03/31/23 Range/Units 17:56 Unknown WBC (4.8-10.8) K/ul RBC (4.20-5.40) M/uL Hgb (12.0-16.0) g/dl Hct (37.0-47.0) % MCV (80.0-100.0) fL MCH (25.0-34.0) pg MCHC (32.0-36.0) g/dL RDW Std Deviation (36.4-46.3) fL RDW Coeff of Mayo (11.5-14.5) % Plt Count (130-400) K/uL MPV (9.4-12.4) fL Immature Gran % (Auto) % Neut % (Auto) % Lymph % (Auto) % Lyon % (Auto) % Eos % (Auto) % Baso % (Auto) % Neut # (Auto) (1.40-6.50) K/uL Lymph # (Auto) (1.2-3.4) K/uL Lyon # (Auto) (0.11-0.59) K/uL Eos # (Auto) (0-0.50) K/uL Baso # (Auto) (0-0.2) K/uL Immature Gran # (Auto) (0.01-0.20) K/uL Sodium (136-145) mmol/L Potassium (3.5-5.1) mmol/L Chloride (98-107) mmol/L Carbon Dioxide (21-32) mmol/L Anion Gap (3-11) BUN (6-23) mg/dl Creatinine (0.6-1.2) mg/dl Est Cr Clr Drug Dosing ml/min Est GFR ( Amer) ml/min Est GFR (Non-Af Amer) ml/min BUN/Creatinine Ratio (10-20) Glucose (70-99(Fasting)) mg/dl Lactate (0.4-2.0) mmol/L Calcium (8.6-10.3) mg/dl Total Bilirubin (0.2-1.0) mg/dl AST (13-39) U/L ALT (7-52) U/L Alkaline Phosphatase (34-104) U/L Total Protein (6.0-8.3) gm/dl Albumin (3.4-5.0) gm/dl Globulin (2.5-4.0) gm/dl Albumin/Globulin Ratio (0.9-2) Lipase (11-82) U/L Urine Color Yellow Urine Appearance Cloudy A (Clear) Urine pH 6.5 (4.5-7.5) Ur Specific [place] 1.019 (1.000-1.030) Urine Protein 1+ H (Negative) Urine Glucose (UA) Negative (Negative) Urine Ketones 1+ H (Negative) Urine Blood 2+ H (Negative) Urine Nitrite Positive A (Negative) Urine Bilirubin Negative (Negative) Urine Urobilinogen Negative (Negative) Ur Leukocyte Esterase 2+ H (Negative) Urine WBC (Auto) >30 H (0-5) /hpf Urine RBC (Auto) >30 H (0-4) /hpf U Hyaline Cast (Auto) 5-10 H (0-5) /lpf U Epithel Cells (Auto) 5-10 H (0-5) /lpf Urine Bacteria (Auto) 4+ H (Negative) Urine Yeast Not Reportable POC Ur Test NEG (NEG) Imaging Data Radiologist's Impression: Abdomen/Pelvis CT 03/31/23 17:21 CT abd pelvis IV con only CLINICAL HISTORY: L flank pain TECHNIQUE: Helical axial images of the abdomen and pelvis were obtained and displayed. Automated dose lowering techniques and/or adjustment according to patient size were utilized for this exam. This exam was performed with intravenous contrast. CT DOSE: 618.03 mGy.cm COMPARISON: None available at the time of this dictation. FINDINGS: Lower chest: No acute abnormality. Liver: Unremarkable. No focal lesions are seen. Gallbladder and biliary tree: No calcified gallstones. Normal caliber wall. No intra- or extrahepatic biliary ductal dilation. Pancreas: Unremarkable, no focal lesions. Spleen: Unremarkable. Adrenals: There is hypoenhancement enlargement of the left kidney. Hydronephrosis and hydroureter is seen without evidence of obstructive stone. Kidneys and ureters: Unremarkable. Bladder: Unremarkable. Reproductive organs: Right ovarian cyst is seen. Bowel: The appendix is normal. Lymph nodes Retroperitoneal: Unremarkable. Pelvic: Unremarkable. Mesenteric: Unremarkable. Peritoneum: Normal. Vessels: Unremarkable. Abdominal wall: Unremarkable. Bones: Unremarkable. IMPRESSION: Left mild hydronephrosis/hydroureter with abnormal enhancement. No obstructive stones are seen. This may represent a recently passed stone, ascending infection is considered less likely but cannot be entirely excluded. Correlation with urinalysis is recommended. ACT 112: Negative or not required by law. Electronically signed by: Usman Hollis M.D. 03/31/2023 7:34 PM MDM Narrative 27-year-old female who presents emergency department for evaluation of fevers and left flank pain. Review of pertinent visits and past medical history pe rformed. Vital signs in ED significant for tachycardia as well as febrile 39. IV access was established and labs were obtained. CBC demonstrates a white count of 10.4 with left shift. No acute anemia. CMP without significant electrolyte abnormalities. Renal function within normal limits. LFTs and lipase unremarkable. Lactate 1.5. Urinalysis positive for nitrites, +2 leukocyte esterase, +4 bacteria as well as positive blood. Urine culture sent. A CT abdomen/pelvis was performed for left flank pain. This was personally reviewed as well as interpreted by radiology as above and demonstrates evidence of left hydronephrosis/hydroureter. There is no obvious obstructive stone seen. Case and imaging were discussed with attending, Dr. Ruano. On exam, patient is nontoxic-appearing in no acute distress. Lungs CTA. Mild tenderness to palpation in bilateral upper quadrants. There is left CVA tenderness. Remainder of physical exam unremarkable. Patient was initially treated with IV Toradol, Zofran, and 1 L of fluids. Upon reevaluation, patient remained stable with no new concerns. She does report continued low back pain. Repeat vital signs demonstrate febrile 39 and mildly improved tachycardia, HR 95. She was provided with IV Tylenol for additional pain control. She was updated on all exam findings and test results. Given CT findings as well as febrile and tachycardic, patient does meet SIRS criteria and I feel admission to the hospital for IV antibiotics for presumed pyelonephritis would be most appropriate at this time. Patient was agreeable to this plan. Case was discussed with on-call urology, Dr. Benoit, who suspects left hydronephrosis is secondary to pyelonephritis and agrees with IV antibiotics. Case was then discussed with hospitalist, Dr. Chavez, who graciously excepted patient to his service for further management. She was given 1 dose of IV Rocephin here in the ED and admitted in stable condition. Impression & Plan Pyelonephritis of left kidney, Hydronephrosis of left kidney, Left flank pain, Fever Discharge Plan Visit Data Chief Complaint: Abdominal Pain Stated Complaint: ABDOMINAL/BACK PAIN, NAUSEA, VOMITING ED Provider: Lauryn Ruano ED Midlevel Provider: Saira Jasmine Discharge Problem: Pyelonephritis of left kidney, Hydronephrosis of left kidney, Left flank pain, Fever Patient Disposition: Admitted As Inpatient Forms Stand Alone Forms: [facility] Prescriptions Prescriptions: No Action Vitamin 27 mg iron- 800 mcg Tablet 1 tab PO PM acetaminophen [Tylenol] 325 mg Tablet 650 mg PO QID PRN (Reason: Pain) amoxicillin 500 mg tablet 500 mg PO BID Rx Instructions: filled 03/30/23, for 7 days bupropion HCl 150 mg tablet extended release 24 hr 150 mg PO QAM Referrals Referrals: PCP,NO [Physician] -
[2023-03-31 18:06] LABS: Basophils # (auto) 0.03 K/uL (0-0.2); Basophils % (auto) 0.3 %; Eosinophils # (auto) 0.04 K/uL (0-0.50); Eosinophils % (auto) 0.4 %; Hematocrit (blood only) 34.6 % (37.0-47.0); Hemoglobin 11.6 g/dl (12.0-16.0); Immature Granulocytes # (auto) 0.04 K/uL (0.01-0.20); Immature Granulocytes % (auto) 0.4 %; Lymphocytes # (auto) 0.72 K/uL (1.2-3.4); Lymphocytes % (auto) 6.9 %; Mean Corpuscular Hemoglobin 29.2 pg (25.0-34.0); Mean Corpuscular Hgb Conc 33.5 g/dL (32.0-36.0); Mean Corpuscular Volume 87.2 fL (80.0-100.0); Monocytes # (auto) 0.98 K/uL (0.11-0.59); Monocytes % (auto) 9.4 %; Neutrophils # (auto) 8.59 K/uL (1.40-6.50); Neutrophils % (auto) 82.6 %; Platelet Count 196 K/uL (130-400); RDW Coefficient of Variation 12.7 % (11.5-14.5); RDW Standard Deviation 40.3 fL (36.4-46.3); Red Blood Count 3.97 M/uL (4.20-5.40)
[2023-03-31 18:20] LABS: Appearance Urine Cloudy (Clear); Bacteria Urine Automated 4+ (Negative); Bilirubin Urine Negative (Negative); Blood Urine 2+ (Negative); Color Urine Yellow; Glucose Urine UA Negative (Negative); Ketones Urine 1+ (Negative); Leukocyte Esterase Urine 2+ (Negative); Nitrite Urine Positive (Negative); Protein Urine 1+ (Negative); Specific Gravity Urine 1.019 (1.000-1.030); Urobilinogen Urine Negative (Negative); WBC Urine Automated >30 /hpf (0-5); pH Urine 6.5 (4.5-7.5)
[2023-03-31 18:24] LABS: Albumin Globulin Ratio 1.5 (0.9-2); Albumin Level 4.4 gm/dl (3.4-5.0); Bilirubin,Total 0.5 mg/dl (0.2-1.0); Calcium 8.9 mg/dl (8.6-10.3); Creatinine Clr Calc Pharmacy 121.5 ml/min; Est GFR (African American) 143.6 ml/min; Est GFR (Non-African American) 123.9 ml/min; Potassium 3.5 mmol/L (3.5-5.1); Total Protein 7.4 gm/dl (6.0-8.3)
[2023-03-31 18:43] LABS: RBC Urine Automated >30 /hpf (0-4)
[2023-03-31] MEDS ORDERED: OPTIRAY 320 100ml IV ONE (18:52)
[2023-03-31] MEDS ORDERED: cefTRIAXone SODIUM 2,000 MG/70 ML BAG IV STA (19:14)
--- NOTE | 2023-03-31 19:36 | CT Scan Report ---
CT abd pelvis IV con only CLINICAL HISTORY: L flank pain TECHNIQUE: Helical axial images of the abdomen and pelvis were obtained and displayed. Automated dose lowering techniques and/or adjustment according to patient size were utilized for this exam. This e xam was performed with intravenous contrast. CT DOSE: 618.03 mGy.cm COMPARISON: None available at the time of this dictation. FINDINGS: Lower chest: No acute abnormality. Liver: Unremarkable. No focal lesions are seen. Gallbladder and biliary tree: No calcified gallstones. Normal caliber wall. No intra- or extrahepatic biliary ductal dilation. Pancreas: Unremarkable, no focal lesions. Spleen: Unremarkable. Adrenals: There is hypoenhancement enlargement of the left kidney. Hydronephrosis and hydroureter is seen without evidence of obstructive stone. Kidneys and ureters: Unremarkable. Bladder: Unremarkable. Reproductive organs: Right ovarian cyst is seen. Bowel: The appendix is normal. Lymph nodes Retroperitoneal: Unremarkable. Pelvic: Unremarkable. Mesenteric: Unremarkable. Peritoneum: Normal. Vessels: Unremarkable. Abdominal wall: Unremarkable. Bones: Unremarkable. IMPRESSION: Left mild hydronephrosis/hydroureter with abnormal enhancement. No obstructive stones are seen. This may represent a recently passed stone, ascending infection is considered less likely but cannot be en tirely excluded. Correlation with urinalysis is recommended. ACT 112: Negative or not required by law. Electronically signed by: Usman Hollis M.D. 03/31/2023 7:34 PM
[2023-03-31] MEDS ORDERED: ACETAMINOPHEN 1,000 MG/100 ML VIAL IV STA (19:40)
--- NOTE | 2023-03-31 22:06 | History and Physical Report ---
DATE OF ADMISSION: 03/31/2023. CHIEF COMPLAINT: Abdominal pain, fevers. HISTORY OF PRESENT ILLNESS: This is a 27-year-old female with past medical history significant for POTS, history of Alf-Danlos syndrome, history of juvenile rheumatoid arthritis and ankylosing spondylitis, she was previously on Celebrex and enalapril, but not currently, presents with not feeling well since last . She had a dental abscess few months back and treated with antibiotics and tooth extraction, but there is some pain on the jaw and she thought it could be from dental infection and got prescrition for amoxicillin and she also took some Tylenol and the fever seemed to get better, but again on Saturday evening, she had high fevers and also bilateral back pains and she took Tylenol, seemed to help and again today afternoon again she developed high fevers and her thought she was passing in and out, so he brought her to the hospital.In ER , T-max was 39. She was tachycardic in the 120s when she came in and urinalysis grossly positive and CT abdomen and pelvis showing left mild hydronephrosis and hydroureter. No stones seen. Possible pyelonephritis. Heart rates improved currently. Currently, resting comfortably, hemodynamically stable. Still has some back pain. Denies nausea or vomiting today. Denies abdominal pain. No burning micturition, no blood in the urine. Normal bowel movements. No chest pain, no shortness of breath, no cough. Having migraine headaches . No earaches, no runny nose, no sore throat, no blurred visions. ALLERGIES: MORPHINE AND BENADRYL. PAST MEDICAL HISTORY: As mentioned above. PAST SURGICAL HISTORY: Dental surgery. MEDICATIONS: The patient is on Tylenol 650 mg p.o. q.i.d. p.r.n., amoxicillin 500 mg p.o. b.i.d., bupropion 150 mg p.o. a.m., vitamin 1 tablet daily. FAMILY HISTORY: No family history on the file. SOCIAL HISTORY: , no smoking. REVIEW OF SYSTEMS: As per HPI. Rest of the review of systems is negative. PHYSICAL EXAMINATION: GENERAL: The patient is of moderate build, not in acute distress. VITAL SIGNS: Temperature T-max 39, pulse 95, respiratory rate 19, blood pressure 109/66, oxygen 96% on room air. HEENT: Pupils equal, round and reactive to light. Oral mucosa moist. NECK: No JVD, no neck masses. CARDIOVASCULAR: S1 and S2 heard, tachycardia. No murmurs. RESPIRATORY SYSTEM: Normal AP diameter. No accessory muscle use. No wheezing or crackles. ABDOMEN: Soft, bowel sounds present. Bilateral CVA tenderness present. No distention. CENTRAL NERVOUS SYSTEM: Cranial nerves II-XII grossly intact, nonfocal. EXTREMITIES: No edema, no erythema. LABORATORY DATA: WBC 10.4, hemoglobin 11.6, hematocrit 34.6, platelets 196. Sodium 139, potassium 3.5, chloride 104, bicarb 26, BUN 13, creatinine 0.5, serum glucose 101, lactate 1.5, calcium 8.9, total bilirubin 0.5, AST 25, ALT 18, alkaline phosphatase 95. Lipase 10. Urinalysis positive for nitrite, +2 leukocyte esterase, +4 bacteria. test negative. SARS-CoV-2 rapid test negative. IMAGING DATA: CT abdomen and pelvis with IV contrast left mild hydronephrosis, hydroureter with abnormal enhancement. No obstructing stones are seen, which may represent recently passed stone, ascending infection is considered less likely, but cannot be entirely excluded. Correlation with urinalysis recommended. ASSESSMENT AND PLAN: This 27-year-old female presents with abdominal pain and fevers, found to have UTI and possible pyelonephritis. 1. Urinary tract infection, possible pyelonephritis, left hydronephrosis, mild, could be from pyelonephritis. ER discussed with Urology. Will continue with IV antibiotics. If any worsening, we will consult urology. Follow the cultures. IV fluids. Monitor the response. 2. History of ankylosing spondylitis, history of Alf-Danlos syndrome, history of rheumatoid arthritis, following with rheumatology. 3. Deep venous thrombosis prophylaxis: Lovenox. DISPOSITION: Closely monitor in the med tele. PT/OT prior to discharge. Social service to help with discharge planning. Job ID: [id number] [facility]
[2023-03-31] MEDS: ENOXAPARIN INJ 40 MG/0.4 ML SYR SQ SCH (22:20)
[2023-03-31] MEDS: SODIUM CHLORIDE 0.9% 1000ML 1,000 ML IV SCH (22:20)
[2023-03-31] MEDS ORDERED: KETOROLAC TROMETHAMINE 15 MG/ML VIAL IV ONE (22:29)
[2023-03-31] MEDS: ONDANSETRON INJ 2 MG/ML 2 ML VIAL IV PRN (22:40)
[2023-04-01] MEDS: KETOROLAC TROMETHAMINE 15 MG/ML VIAL IV PRN ×3 (02:38→21:09)
[2023-04-01] MEDS: oxyCODONE HCL IR 5 MG TAB (IMMEDIATE RELEASE) PO PRN ×2 (05:58→16:37)
[2023-04-01] MEDS: SODIUM CHLORIDE 0.9% 1000ML 1,000 ML IV SCH ×3 (06:10→21:20)
[2023-04-01 06:12] LABS: Basophils # (auto) 0.03 K/uL (0-0.2); Basophils % (auto) 0.4 %; Eosinophils # (auto) 0.03 K/uL (0-0.50); Eosinophils % (auto) 0.4 %; Hematocrit (blood only) 31.6 % (37.0-47.0); Hemoglobin 10.2 g/dl (12.0-16.0); Immature Granulocytes # (auto) 0.02 K/uL (0.01-0.20); Immature Granulocytes % (auto) 0.3 %; Lymphocytes # (auto) 1.12 K/uL (1.2-3.4); Lymphocytes % (auto) 14.1 %; Mean Corpuscular Hemoglobin 28.3 pg (25.0-34.0); Mean Corpuscular Hgb Conc 32.3 g/dL (32.0-36.0); Mean Corpuscular Volume 87.5 fL (80.0-100.0); Mean Platelet Volume 10.3 fL (9.4-12.4); Monocytes # (auto) 0.84 K/uL (0.11-0.59); Monocytes % (auto) 10.6 %; Neutrophils # (auto) 5.88 K/uL (1.40-6.50); Neutrophils % (auto) 74.2 %; Platelet Count 157 K/uL (130-400); RDW Coefficient of Variation 12.7 % (11.5-14.5); RDW Standard Deviation 41.1 fL (36.4-46.3); Red Blood Count 3.61 M/uL (4.20-5.40); White Blood Count 7.92 K/ul (4.8-10.8)
[2023-04-01 06:26] LABS: Creatinine Clr Calc Pharmacy 125.8 ml/min; Est GFR (African American) 145.2 ml/min; Est GFR (Non-African American) 125.3 ml/min; Magnesium 1.6 mg/dl (1.7-2.4); Potassium 3.9 mmol/L (3.5-5.1)
[2023-04-01] MEDS: ONDANSETRON INJ 2 MG/ML 2 ML VIAL IV PRN (06:39)
[2023-04-01] MEDS: buPROPion XL 150 MG TABCR PO SCH (07:23)
[2023-04-01] MEDS: ACETAMINOPHEN 325 MG TAB PO PRN ×3 (07:27→19:37)
[2023-04-01] MEDS ORDERED: PROMETHAZINE HCL 6.25 MG in SODIUM CHLORIDE 0.9% 50 ML IV STA (08:29)
[2023-04-01] MEDS: CEFEPIME 2,000 MG in SYRINGE 0 ML IV SCH ×2 (10:54→17:28)
--- NOTE | 2023-04-01 11:59 | Hospitalist Progress Note ---
Date of Service April 01, 2023 Assessment & Plan (1) Pyelonephritis of left kidney: (2) Hydronephrosis of left kidney: (3) UTI (urinary tract infection): Plan: Patient is a 27-year-old female who presented with fever and flank pain Febrile to 39.0 C Urinalysis consistent with infection. CT abdomen and pelvis reviewed personally; concern of left sided mild hydronephrosis. EKG reviewed personally; normal sinus rhythm. QTc of 444 Urine culture grew E. coli Continue on cefepime. Continue IV hydration with normal saline at 125 cc/h Obtain blood culture to rule out bacteremia Analgesics and antipyretics Plan History of ankylosing spondylitis, history of Alf-Danlos syndrome, history of rheumatoid arthritis, following with rheumatology. Deep venous thrombosis prophylaxis: Lovenox. Full code Please note the above document was generated using voice recognition software. It may contain grammatical, syntax or spelling errors. Any formal questions or concerns about the content, text or information contained within the body of this dictation should be directly addressed to the provider for clarification Admission and Anticipated Discharge Date Admission Date: March 31, 2023 Subjective Patient seen and examined at bedside. She reports back pain and decreased energy. Was febrile this morning. Review of Systems Review of Systems: All systems reviewed & are unremarkable except as noted in Subjective Physical Exam Physical Exam: Constitutional: Awake, alert orient x3. Appears tired Respiratory: normal respiratory effort, lungs clear to auscultation, no wheeze, rales, rhonchi. Normal insp/exp effort, no accessory muscle use Cardiovascular: RRR, no murmur, no edema Vessels: no JVD or carotid bruit Chest: normal inspection of chest Abdomen: normal bowel sounds, soft, nontender, no hepatosplenomegaly Musculoskeletal: no cyanosis or clubbing, extremities motor strength 5/5 Skin: no rashes, warm and dry normal turgor Neurologic: PERRL, EOMI, accommodation nl, no face palsy, no dysarthria CN's II- XI intact bilaterally and moves all extremities Psychiatric: A+Ox3, euthymic affect Results & Data Results & Data Vital Signs (Past 12 Hours) Vital Signs Temp Pulse Resp BP Pulse Ox O2 Del Method 04/01/23 08:30 39.0 C H 105 H 17 110/73 98 Room Air 04/01/23 03:19 37.4 C 90 18 105/67 98 Room Air Laboratory Results Laboratory Results WBC 7.92 K/ul (4.8-10.8) 04/01/23 05:42 RBC 3.61 M/uL (4.20-5.40) L 04/01/23 05:42 Hgb 10.2 g/dl (12.0-16.0) L 04/01/23 05:42 Hct 31.6 % (37.0-47.0) L 04/01/23 05:42 MCV 87.5 fL (80.0-100.0) 04/01/23 05:42 MCH 28.3 pg (25.0-34.0) 04/01/23 05:42 MCHC 32.3 g/dL (32.0-36.0) 04/01/23 05:42 RDW Std Deviation 41.1 fL (36.4-46.3) 04/01/23 05:42 RDW Coeff of Mayo 12.7 % (11.5-14.5) 04/01/23 05:42 Plt Count 157 K/uL (130-400) 04/01/23 05:42 MPV 10.3 fL (9.4-12.4) 04/01/23 05:42 Immature Gran % (Auto) 0.3 % 04/01/23 05:42 Neut % (Auto) 74.2 % 04/01/23 05:42 Lymph % (Auto) 14.1 % 04/01/23 05:42 [place] % (Auto) 10.6 % 04/01/23 05:42 Eos % (Auto) 0.4 % 04/01/23 05:42 Baso % (Auto) 0.4 % 04/01/23 05:42 Neut # (Auto) 5.88 K/uL (1.40-6.50) 04/01/23 05:42 Lymph # (Auto) 1.12 K/uL (1.2-3.4) L 04/01/23 05:42 [place] # (Auto) 0.84 K/uL (0.11-0.59) H 04/01/23 05:42 Eos # (Auto) 0.03 K/uL (0-0.50) 04/01/23 05:42 Baso # (Auto) 0.03 K/uL (0-0.2) 04/01/23 05:42 Immature Gran # (Auto) 0.02 K/uL (0.01-0.20) 04/01/23 05:42 Sodium 137 mmol/L (136-145) 04/01/23 05:42 Potassium 3.9 mmol/L (3.5-5.1) 04/01/23 05:42 Chloride 106 mmol/L (98-107) 04/01/23 05:42 Carbon Dioxide 26 mmol/L (21-32) 04/01/23 05:42 Anion Gap 5 (3-11) 04/01/23 05:42 BUN 8 mg/dl (6-23) 04/01/23 05:42 Creatinine 0.57 mg/dl (0.6-1.2) L 04/01/23 05:42 Est Cr Clr Drug Dosing 125.8 ml/min 04/01/23 05:42 Est GFR ( Amer) 145.2 ml/min 04/01/23 05:42 Est GFR (Non-Af Amer) 125.3 ml/min 04/01/23 05:42 BUN/Creatinine Ratio 14.0 (10-20) 04/01/23 05:42 Glucose 93 mg/dl (70-99(Fasting)) 04/01/23 05:42 Lactate 1.5 mmol/L (0.4-2.0) 03/31/23 17:33 Calcium 8.0 mg/dl (8.6-10.3) L 04/01/23 05:42 Magnesium 1.6 mg/dl (1.7-2.4) L 04/01/23 05:42 Total Bilirubin 0.5 mg/dl (0.2-1.0) 03/31/23 17:33 AST 25 U/L (13-39) 03/31/23 17:33 ALT 18 U/L (7-52) 03/31/23 17:33 Alkaline Phosphatase 95 U/L (34-104) 03/31/23 17:33 Total Protein 7.4 gm/dl (6.0-8.3) 03/31/23 17:33 Albumin 4.4 gm/dl (3.4-5.0) 03/31/23 17:33 Globulin 3.0 gm/dl (2.5-4.0) 03/31/23 17:33 Albumin/Globulin Ratio 1.5 (0.9-2) 03/31/23 17:33 Lipase 10 U/L (11-82) L 03/31/23 17:33 Urine Color Yellow 03/31/23 Unknown Urine Appearance Cloudy (Clear) A 03/31/23 Unknown Urine pH 6.5 (4.5-7.5) 03/31/23 Unknown Ur Specific [place] 1.019 (1.000-1.030) 03/31/23 Unknown Urine Protein 1+ (Negative) H 03/31/23 Unknown Urine Glucose (UA) Negative (Negative) 03/31/23 Unknown Urine Ketones 1+ (Negative) H 03/31/23 Unknown Urine Blood 2+ (Negative) H 03/31/23 Unknown Urine Nitrite Positive (Negative) A 03/31/23 Unknown Urine Bilirubin Negative (Negative) 03/31/23 Unknown Urine Urobilinogen Negative (Negative) 03/31/23 Unknown Ur Leukocyte Esterase 2+ (Negative) H 03/31/23 Unknown Urine WBC (Auto) >30 /hpf (0-5) H 03/31/23 Unknown Urine RBC (Auto) >30 /hpf (0-4) H 03/31/23 Unknown U Hyaline Cast (Auto) 5-10 /lpf (0-5) H 03/31/23 Unknown U Epithel Cells (Auto) 5-10 /lpf (0-5) H 03/31/23 Unknown Urine Bacteria (Auto) 4+ (Negative) H 03/31/23 Unknown Urine Yeast Not Reportable 03/31/23 Unknown POC Ur Test NEG (NEG) 03/31/23 17:56 SARS-CoV-2, RNA, NAAT NEGATIVE (NEGATIVE) 03/31/23 17:34 Impressions Abdomen/Pelvis CT 03/31/23 17:21 CT abd pelvis IV con only CLINICAL HISTORY: L flank pain TECHNIQUE: Helical axial images of the abdomen and pelvis were obtained and displayed. Automated dose lowering techniques and/or adjustment according to patient size were utilized for this exam. This exam was performed with intravenous contrast. CT DOSE: 618.03 mGy.cm COMPARISON: None available at the time of this dictation. FINDINGS: Lower chest: No acute abnormality. Liver: Unremarkable. No focal lesions are seen. Gallbladder and biliary tree: No calcified gallstones. Normal caliber wall. No intra- or extrahepatic biliary ductal dilation. Pancreas: Unremarkable, no focal lesions. Spleen: Unremarkable. Adrenals: There is hypoenhancement enlargement of the left kidney. Hydronephrosis and hydroureter is seen without evidence of obstructive stone. Kidneys and ureters: Unremarkable. Bladder: Unremarkable. Reproductive organs: Right ovarian cyst is seen. Bowel: The appendix is normal. Lymph nodes Retroperitoneal: Unremarkable. Pelvic: Unremarkable. Mesenteric: Unremarkable. Peritoneum: Normal. Vessels: Unremarkable. Abdominal wall: Unremarkable. Bones: Unremarkable. IMPRESSION: Left mild hydronephrosis/hydroureter with abnormal enhancement. No obstructive stones are seen. This may represent a recently passed stone, ascending infection is considered less likely but cannot be entirely excluded. Correlation with urinalysis is recommended. ACT 112: Negative or not required by law. Electronically signed by: Usman Hollis M.D. 03/31/2023 7:34 PM
[2023-04-01] MEDS ORDERED: cefTRIAXone SODIUM 2,000 MG in DEXTROSE 5% 50 ML IV SCH (19:00)
[2023-04-01] MEDS: ENOXAPARIN INJ 40 MG/0.4 ML SYR SQ SCH (21:35)
[2023-04-02] MEDS: CEFEPIME 2,000 MG in SYRINGE 0 ML IV SCH (02:13)
[2023-04-02] MEDS: SODIUM CHLORIDE 0.9% 1000ML 1,000 ML IV SCH (05:21)
[2023-04-02] MEDS: ACETAMINOPHEN 325 MG TAB PO PRN (05:23)
[2023-04-02] MEDS: buPROPion XL 150 MG TABCR PO SCH (06:50)
[2023-04-02 07:20] LABS: Basophils # (auto) 0.02 K/uL (0-0.2); Basophils % (auto) 0.4 %; Eosinophils # (auto) 0.08 K/uL (0-0.50); Eosinophils % (auto) 1.5 %; Hematocrit (blood only) 28.5 % (37.0-47.0); Hemoglobin 9.5 g/dl (12.0-16.0); Immature Granulocytes # (auto) 0.01 K/uL (0.01-0.20); Immature Granulocytes % (auto) 0.2 %; Lymphocytes # (auto) 1.48 K/uL (1.2-3.4); Lymphocytes % (auto) 27.5 %; Mean Corpuscular Hemoglobin 28.8 pg (25.0-34.0); Mean Corpuscular Hgb Conc 33.3 g/dL (32.0-36.0); Mean Corpuscular Volume 86.4 fL (80.0-100.0); Monocytes # (auto) 0.88 K/uL (0.11-0.59); Monocytes % (auto) 16.3 %; Neutrophils # (auto) 2.92 K/uL (1.40-6.50); Neutrophils % (auto) 54.1 %; Platelet Count 154 K/uL (130-400); RDW Coefficient of Variation 12.7 % (11.5-14.5); White Blood Count 5.39 K/ul (4.8-10.8)
[2023-04-02 07:39] LABS: Anion Gap 5 (3-11); BUN Creatinine Ratio 11.6 (10-20); Blood Urea Nitrogen 5 mg/dl (6-23); Calcium 7.9 mg/dl (8.6-10.3); Carbon Dioxide 24 mmol/L (21-32); Chloride 110 mmol/L (98-107); Creatinine Clr Calc Pharmacy 166.7 ml/min; Est GFR (African American) > 150.0 ml/min; Est GFR (Non-African American) 137.4 ml/min; Glucose 88 mg/dl (70-99(Fasting)); Potassium 3.6 mmol/L (3.5-5.1); Sodium 139 mmol/L (136-145)
[2023-04-02] MEDS ORDERED: cefTRIAXone SODIUM 2,000 MG in DEXTROSE 5% 50 ML IV SCH (08:00)
--- NOTE | 2023-04-02 12:18 | Discharge Summary ---
Date of Service April 02, 2023 Admission HPI Per Admitting Provider This is a 27-year-old female with past medical history significant for POTS, history of Alf-Danlos syndrome, history of juvenile rheumatoid arthritis and ankylosing spondylitis, she was previously on Celebrex and enalapril, but not currently, presents with not feeling well since last . She had a dental abscess few months back and treated with antibiotics and tooth extraction, but there is some pain on the jaw and she thought it could be from dental infection and got prescrition for amoxicillin and she also took some Tylenol and the fever seemed to get better, but again on Saturday evening, she had high fevers and also bilateral back pains and she took Tylenol, seemed to help and again today afternoon again she developed high fevers and her thought she was passing in and out, so he brought her to the hospital.In ER , T-max was 39. She was tachycardic in the 120s when she came in and urinalysis grossly positive and CT abdomen and pelvis showing left mild hydronephrosis and hydroureter. No stones seen. Possible pyelonephritis. Heart rates improved currently. Currently, resting comfortably, hemodynamically stable. Still has some back pain. Denies nausea or vomiting today. Denies abdominal pain. No burning micturition, no blood in the urine. Normal bowel movements. No chest pain, no shortness of breath, no cough. Having migraine headaches . No earaches, no runny nose, no sore throat, no blurred visions. Admission Exam Per Admitting Provider GENERAL: The patient is of moderate build, not in acute distress. VITAL SIGNS: Temperature T-max 39, pulse 95, respiratory rate 19, blood pressure 109/66, oxygen 96% on room air. HEENT: Pupils equal, round and reactive to light. Oral mucosa moist. NECK: No JVD, no neck masses. CARDIOVASCULAR: S1 and S2 heard, tachycardia. No murmurs. RESPIRATORY SYSTEM: Normal AP diameter. No accessory muscle use. No wheezing or crackles. ABDOMEN: Soft, bowel sounds present. Bilateral CVA tenderness present. No distention. CENTRAL NERVOUS SYSTEM: Cranial nerves II-XII grossly intact, nonfocal. EXTREMITIES: No edema, no erythema. Principal Diagnosis (1) Pyelonephritis of left kidney: (2) Hydronephrosis of left kidney: (3) UTI (urinary tract infection): Discharge Exam Constitutional: Awake, alert orient x3. Appears comfortable Respiratory: normal respiratory effort, lungs clear to auscultation, no wheeze, rales, rhonchi. Normal insp/exp effort, no accessory muscle use Cardiovascular: RRR, no murmur, no edema Vessels: no JVD or carotid bruit Chest: normal inspection of chest Abdomen: normal bowel sounds, soft, nontender, no hepatosplenomegaly Musculoskeletal: no cyanosis or clubbing, extremities motor strength 5/5 Skin: no rashes, warm and dry normal turgor Neurologic: PERRL, EOMI, accommodation nl, no face palsy, no dysarthria CN's II- XI intact bilaterally and moves all extremities Psychiatric: A+Ox3, euthymic affect Discharge Data Allergies Allergy/AdvReac Type Severity Reaction Status Date / Time morphine Allergy Severe Anaphylaxis Verified 11/18/21 21:59 diphenhydramine AdvReac Severe Anaphylaxis Verified 11/18/21 21:59 [From Benadryl] Consultations 03/31/23 20:06 ED Decision to Admit Stat Ordered Studies 03/31/23 17:21 CT abd pelvis IV con only Stat Hospital Course (1) Pyelonephritis of left kidney: (2) Hydronephrosis of left kidney: (3) UTI (urinary tract infection): Patient is a 27-year-old female who presented with fever and flank pain Febrile to 39.0 C on admission Urinalysis consistent with infection. CT abdomen and pelvis reviewed personally; concern of left sided mild hydronephrosis. EKG reviewed personally; normal sinus rhythm. QTc of 444 Urine culture grew E. coli Blood culture no growth in 24 hours. During the hospitalization, patient was started on ceftriaxone, IV fluids and supportive care. Her blood culture was negative for 24 hours. Patient was discharged home on 10 more days of cefixime 400 mg. Patient was recommended to follow-up with primary care doctor and undergo renal ultrasound to follow-up on left-sided hydronephrosis. Plan Please note the above document was generated using voice recognition software. It may contain grammatical, syntax or spelling errors. Any formal questions or concerns about the content, text or information contained within the body of this dictation should be directly addressed to the provider for clarification Total Time Total Time Spent Total Time Spent (In Minutes): 40 Total Time Includes: Examination of the Patient, Discharge Planning, Medication Reconciliation, Communication With Other Providers and Other Discharge Plan Discharge Items Patient Disposition: Home - Self-Care Reason For Visit: ABDOMINAL PAIN Discharge Diagnosis: Pyelonephritis of left kidney UTI Activity: Resume your previous activity Non-emergency contact: Primary Care Provider Call non-emergency contact if: you have any medication questions Follow-up/Referrals: Rachelle Dyson, DO [Primary Care Provider] - (Date & Time 04/09/2023 10:20 AM Provider Cyn Jerez PA-C Department Family Practice [facility] *Please note the time change from your previously scheduled appointment for the same day.*) Diet: Regular Addtl Attending Provider Instructions: You were admitted to the hospital with UTI and left-sided pyelonephritis(kidney infection). You are prescribed cefixime 400 mg once daily for [address] abdomen done during the hospitalization showed mild left-sided hydronephrosis (swelling of the kidney); no obstructive stones were seen. Ple ase follow-up with her primary care doctor and obtain ultrasound kidney and bladder as outpatient. If persistent hydronephrosis is seen after resolution of the infection; he would need to be referred to urologist. An appointment will be set up with your primary care doctor. Pending Studies at Discharge: No Stand-Alone Forms: [facility] [employer], Smoking Cessation Medications and DC Order Prescriptions: New cefixime 400 mg capsule 400 mg PO DAILY 10 Days Qty: 10 0RF Continued Vitamin 27 mg iron- 800 mcg Tablet 1 tab PO PM acetaminophen [Tylenol] 325 mg Tablet 650 mg PO QID PRN (Reason: Pain) bupropion HCl 150 mg tablet extended release 24 hr 150 mg PO QAM Discontinued amoxicillin 500 mg tablet 500 mg PO BID Rx Instructions: filled 03/30/23, for 7 days Discharge Orders: Discharge Order (Routine); Ordered 04/02/23 Ordered By: Paco Ware Admission Data Admit Date/Time: 03/31/23 20:58 Attending Provider: Paco Ware Admit Provider: Bhavin Cortez Primary Care Provider: Rachelle Dyson Other Providers: Bhavin Cortez
== END 2023-04-02 18:06 | disposition home or self-care (01) | DRG 690 ==
LOC: ED 16:44 → 2N 20:58 → SUATTDRO 20:58 → 2N 21:50